=== PATIENT | male | born 1980 ===

== ENCOUNTER → 2023-09-14 14:47 | Outpatient (REF) | payer OTHER, SELFPAY | LOC: HWRAD 14:47 | PROVIDERS: ATTENDING PHYSICIAN Physician Assistant; FAMILY PHYSICIAN Family Medicine | DX: R10.31 Right lower quadrant pain (principal); R10.9 Unspecified abdominal pain | CPT/HCPCS: 76700 ==

== ENCOUNTER → 2023-09-15 14:44 | Outpatient (REF) | payer OTHER, SELFPAY | LOC: HWRAD 14:44 | PROVIDERS: ATTENDING PHYSICIAN Physician Assistant; FAMILY PHYSICIAN Family Medicine | DX: R10.31 Right lower quadrant pain (principal); R10.9 Unspecified abdominal pain | CPT/HCPCS: 76770 ==